=== PATIENT | male | born 1945 | race Hispanic/Latino ===

== ENCOUNTER 2019-03-31 07:31 | Day surgery (SDC) | payer MEDICARE ==
[~2019-03-31 07:31] MED LIST: EPINEPHrine 0.3 MG in Ophthalmic Irrigation Solution 500 ML IRR SCH; Fentanyl 100 MCG/2 ML VIAL ONE; Midazolam HCl 2 mg/2 ml Vial ONE
[2019-03-31] MEDS ORDERED: Cyclopentolate 1% Opth Drop 2 ML BOT ONE (08:19)
[2019-03-31] MEDS ORDERED: Phenylephrine 2.5% Ophth Soln 5 ML BOT ONE (08:19)
[2019-03-31] MEDS ORDERED: Bupivacaine PF 0.75% SDV 10 ML ONE (11:47)
[2019-03-31] MEDS ORDERED: CEFAZOLIN 1 GM VIAL ONE (11:47)
[2019-03-31] MEDS ORDERED: Maxitrol 0.1% Opth Oint 3.5 GM TUBE ONE (11:47)
[2019-03-31] MEDS ORDERED: Indocyanine Green 25 MG/10 ML VIAL ONE (11:47)
[2019-03-31] MEDS ORDERED: Triamcinolone 40 MG/ML VIAL ONE (11:47)
[2019-03-31] MEDS ORDERED: Lidocaine 4% PF 5 ML AMP ONE (11:47)
[2019-03-31] MEDS ORDERED: Lidocaine 1% PF 5 ML VIAL ONE (11:47)
[2019-03-31] MEDS ORDERED: PROPOFOL 200 MG/20 ML VIAL ONE (11:47)
--- NOTE | 2019-03-31 14:16 | OP ---
DATE OF PROCEDURE: 03/31/2019 PRINCIPAL PREOPERATIVE DIAGNOSIS: Epiretinal membrane, right eye. POSTOPERATIVE DIAGNOSIS: Epiretinal membrane, right eye. NAME OF PROCEDURES PERFORMED: 1. 25-gauge pars plana vitrectomy, right eye. 2. Epiretinal membrane/internal limiting membrane removal, right eye. ESTIMATED BLOOD LOSS: None. SPECIMENS REMOVED: None. COMPLICATIONS: None. ANESTHESIA: MAC with retrobulbar block. SUMMARY OF OPERATION: The patient was identified in the preoperative holding area, where the correct eye being the right eye was marked for surgery. The patient was taken to the operating room, where MAC anesthesia was induced. A retrobulbar block was administered to the right eye. The block consisted of 1:1 ratio of 4% lidocaine and 0.75% Marcaine. A total of 5 mL was administered. The right eye was then prepped and draped in the usual sterile ophthalmic fashion for surgery. A wire-clip lid speculum was placed. A standard 25-gauge pars plana vitrectomy platform was fashioned with trocars placed approximately 3.5 mm from the limbus. The infusion was noted to be within the vitreous cavity prior to being turned on to an infusion pressure of 30 mmHg. The light pipe and microvitrector were introduced in the eye under visualization of the BIOM viewing system. A careful core and peripheral shave vitrectomy were performed with the assistance of Kenisabell. Following vitrectomy, ICG dye was inserted in the eye to stain the internal limiting membrane. An epiretinal membrane/internal limiting membrane complex removal was performed in a circumferential fashion about the fovea. The peel extended approximately 2 disk diameters in radius circumferentially. Following completion of peeling, the microvitrector was reintroduced in the eye to remove any residual vitreous debris. A 360-degree scleral depressed exam of the periphery revealed no defects. The cannulas were sequentially removed and all sclerotomies were noted to be watertight. Subconjunctival Ancef and Kenalog were injected. The wire-clip lid speculum was removed followed by application of Tobradex ophthalmic ointment and a light patch and shield. The patient tolerated the procedure well and was taken to the outpatient recovery area in good condition. Job ID: [id number]
== END 2019-03-31 10:50 | disposition home or self-care (01) ==
LOC: SDC 07:31
PROVIDERS: ATTEND Ophthalmology Retina Specialist
PROC: 08T43ZZ Resection of Right Vitreous, Percutaneous Approach (ICD-10-PCS; principal; 2019-03-31)
PROC: 08NE3ZZ Release Right Retina, Percutaneous Approach (ICD-10-PCS; 2019-03-31)
DX: H35.371 Puckering of macula, right eye (principal)
CPT/HCPCS: 36416; J0171; J0690; J2001; J2250; J2704; J3010; J3301; J3490

== ENCOUNTER 2020-03-09 14:28 | Outpatient (CLI) | payer MEDICARE ==
--- NOTE | 2020-03-09 14:57 | RAD ---
CERVICAL SPINE FOUR VIEWS: 03/09/20 HISTORY: Cervicalgia. No comparison. FINDINGS: There is mild loss of height and wedging of the C5 and C6 vertebrae. :Loss of disc space at C5-6 with prominent anterior spurring at this C5-6 level. Mild posterior spondylosis at this level. The other vertebral bodies maintain height and alignment. The other disc spaces are preserved. Mild d egenerative spurring at C4-5. 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 Findings are chronic and may represent old injur y to this level. POS: OFF
== END 2020-03-09 14:29 | disposition home or self-care (01) ==
LOC: BICRAD 14:28
PROVIDERS: ATTEND Family Medicine
DX: M54.2 Cervicalgia (principal); M47.812 Spondylosis without myelopathy or radiculopathy, cervical region; R29.890 Loss of height; M77.8 Other enthesopathies, not elsewhere classified
CPT/HCPCS: 72040

== ENCOUNTER 2020-08-16 15:15 | Outpatient (CLI) | payer MEDICARE | END 2020-08-16 15:16 | disposition home or self-care (01) | LOC: BICCT 15:15 | PROVIDERS: ATTEND Family Medicine | DX: M54.2 Cervicalgia (principal); M47.812 Spondylosis without myelopathy or radiculopathy, cervical region; M48.02 Spinal stenosis, cervical region | CPT/HCPCS: 72125 ==

== ENCOUNTER 2022-08-06 14:13 | Outpatient (CLI) | payer MEDICARE | END 2022-08-06 14:14 | disposition home or self-care (01) | LOC: ULT 14:13 | PROVIDERS: ATTEND Urology | DX: N18.31 Chronic kidney disease, stage 3a (principal) | CPT/HCPCS: 76770 ==